=== PATIENT | male | born 1965 | race Two or more races ===

== ENCOUNTER 2020-09-25 07:25 | Emergency (ER) | payer BC ==
[~2020-09-25] VITALS: Ht 188 cm; Wt 102.1 kg
[2020-09-25] MEDS ORDERED: EFFIENT10 MG PO (07:51)
[2020-09-25] MEDS ORDERED: CARVEDILOL3.125 MG (07:51)
[2020-09-25] MEDS ORDERED: NESINA25 MG PO (07:51)
[2020-09-25] MEDS ORDERED: CHILDREN'S ASPI81 MG PO (07:52)
[2020-09-25] MEDS ORDERED: AMLODIPINE-OLM1 EAC2 PO (07:52)
[2020-09-25] MEDS ORDERED: BUPROPION HCL200 M1 (07:53)
[2020-09-25] MEDS ORDERED: METFORMIN HCL1000 MG (07:53)
[2020-09-25] MEDS ORDERED: MEDROLPACK PO (14:49)
== END 2020-09-25 15:02 | disposition home or self-care (01) ==
LOC: ER 07:25
DX: B34.9 Viral infection, unspecified (principal); R05 Cough; R09.81 Nasal congestion; Z03.818 Encounter for observation for suspected exposure to other biological agents ruled out

== ENCOUNTER 2020-10-02 23:24 | Emergency (ER) | payer BC ==
[~2020-10-02] VITALS: Ht 188 cm; Wt 100.2 kg
[~2020-10-02 23:24] MED LIST: AMLODIPINE-OLM1 EAC2 PO; BUPROPION HCL200 M1; CARVEDILOL3.125 MG; CHILDREN'S ASPI81 MG PO; EFFIENT10 MG PO; MEDROLPACK PO; METFORMIN HCL1000 MG; NESINA25 MG PO
[2020-10-03] MEDS ORDERED: MEDROLPACK PO (07:34)
[2020-10-03] MEDS ORDERED: ACETAMINOPHEN650 M2 PO (07:34)
[2020-10-03] MEDS ORDERED: NORFLEX100MG PO (07:34)
== END 2020-10-03 08:16 | disposition home or self-care (01) ==
LOC: ER 23:24
DX: R07.89 Other chest pain (principal); R06.02 Shortness of breath